=== PATIENT | female | born 1990 | race Caucasian/White ===

== ENCOUNTER → 2016-12-24 | Outpatient (REF) | payer BC, OTHER | LOC: M LAB REF 10:10 | PROVIDERS: ATTEND Physician Assistant | DX: J02.9 Acute pharyngitis, unspecified (principal) ==

== ENCOUNTER → 2017-05-13 | Outpatient (CLI) | payer BC, OTHER ==
--- NOTE | 2017-05-13 21:11 | REP ---
RIGHT FOOT COMPLETE: 05/13/2017: Clinical history: Puncture without foreign body right foot. Stepped on a screw. No prior study. Findings: I do not see a metallic radiopaque foreign body. There is no bone puncture evident. I see no heel spurs. Subtalar joints intact. Talonavicular, calcaneocuboid joints, tarsal articulations. Metatarsals and phalanges as well as the joints were all unremarkable. Impression: 1. Negative right foot series. Signed by Austen Couch MD 05/13/2017 09:35 P
== END ==
LOC: M ADAMS 19:03
PROVIDERS: ATTEND Physician Assistant
DX: S91.331A Puncture wound without foreign body, right foot, initial encounter (principal); X58.XXXA Exposure to other specified factors, initial encounter; Y92.9 Unspecified place or not applicable; Y93.9 Activity, unspecified; Y99.9 Unspecified external cause status

== ENCOUNTER → 2018-01-31 | Outpatient (CLI) | payer OTHER | LOC: M WUC 17:11 | DX: M54.5 Low back pain (principal) | CPT/HCPCS: 72110 ==

== ENCOUNTER 2018-05-22 10:51 | Emergency (ER) | payer OTHER | END 2018-05-22 12:01 | disposition home or self-care (01) | LOC: M ED 10:51 | DX: S63.502A Unspecified sprain of left wrist, initial encounter (principal); W01.0XXA Fall on same level from slipping, tripping and stumbling without subsequent striking against object, initial encounter; Y92.098 Other place in other non-institutional residence as the place of occurrence of the external cause; Z88.2 Allergy status to sulfonamides | CPT/HCPCS: 73110 ==

== ENCOUNTER 2018-08-20 20:51 | Emergency (ER) | payer BC, OTHER ==
[2018-08-20] MEDS: diazePAM 10 MG TAB PO (22:26)
[2018-08-20] MEDS: KETOROLAC 60 MG/2 ML VIAL (J1885) IM (22:27)
[2018-08-20] MEDS: OXYCODONE/APAP 5MG/325MG(BULK FOR ED) 1 TABLET PO (22:55)
== END 2018-08-20 23:03 | disposition home or self-care (01) ==
LOC: M ED 20:51
DX: S39.012A Strain of muscle, fascia and tendon of lower back, initial encounter (principal); X58.XXXA Exposure to other specified factors, initial encounter; Y92.9 Unspecified place or not applicable; Y93.9 Activity, unspecified; Y99.9 Unspecified external cause status; Z79.3 Long term (current) use of hormonal contraceptives; Z88.2 Allergy status to sulfonamides; Z88.8 Allergy status to other drugs, medicaments and biological substances
CPT/HCPCS: J1885

== ENCOUNTER → 2019-01-07 | Outpatient (REF) | payer BC ==
[~2019-01-07] MED LIST: IBUP200T45 PO; NAPR-50 PO; NORCOTAB PO; NUVAMIS2; SOMA350T PO; TRAM50TA2 PO
== END ==
LOC: M LAB REF 17:22
PROVIDERS: ATTEND Advanced Practice Midwife
DX: Z12.4 Encounter for screening for malignant neoplasm of cervix (principal)

== ENCOUNTER → 2020-02-18 | Outpatient (REF) | payer OTHER ==
[~2020-02-18] MED LIST changes: +HYDR-3715 PO; -NAPR-50 PO; +NAPR-837 PO; -NORCOTAB PO
== END ==
LOC: M LAB REF 17:40
PROVIDERS: ATTEND Physician Assistant
DX: N39.0 Urinary tract infection, site not specified (principal)

== ENCOUNTER → 2020-10-04 | Outpatient (REF) | payer OTHER | LOC: M LAB REF 16:55 | PROVIDERS: ATTEND Family Medicine | DX: N39.0 Urinary tract infection, site not specified (principal) ==

== ENCOUNTER 2021-03-15 11:28 | Emergency (ER) | payer OTHER ==
[~2021-03-15] VITALS: Ht 162.6 cm; Wt 75.0 kg
[2021-03-15 12:45] LABS: HEMATOCRIT 40.7 % (36.0-47.0); HEMOGLOBIN 13.3 g/dl (12.0-15.5); MEAN CORPUSCULAR HEMOGLOBIN 30.1 pg (27.0-33.0); MEAN CORPUSCULAR HGB CONC 32.7 g/dl (32.0-36.5); MEAN CORPUSCULAR VOLUME 92.1 fl (80.0-96.0); PLATELET COUNT, AUTOMATED 314 10^3/uL (150-450); RED BLOOD COUNT 4.42 10^6/uL (4.00-5.40)
[2021-03-15 13:19] LABS: HCG, SERUM QUANTITATIVE 4 MIU/ML
[2021-03-15 14:04] LABS: ALT/SGPT 21 U/L (12-78); BILIRUBIN,DIRECT < 0.1 MG/DL (0.0-0.2); BILIRUBIN,TOTAL 0.2 MG/DL (0.2-1.0); BLOOD UREA NITROGEN 11 MG/DL (7-18); CALCIUM LEVEL 8.9 MG/DL (8.5-10.1); CARBON DIOXIDE LEVEL 26 MEQ/L (21-32); CHLORIDE LEVEL 107 MEQ/L (98-107); GLOMERULAR FILTRATION RATE > 60.0 (>60); GLUCOSE, FASTING 87 MG/DL (70-100); SODIUM LEVEL 140 MEQ/L (136-145); TOTAL PROTEIN 7.8 GM/DL (6.4-8.2)
--- NOTE | 2021-03-15 14:09 | REP ---
INDICATION: vaginal bleeding, positive hcg, h/o ectopic COMPARISON: None. TECHNIQUE: Transabdominal and transvaginal 1st trimester obstetrical ultrasound with color Doppler evaluation. FINDINGS: Heterogeneous anteverted uterus measures 7.8 x 3.6 x 3.4 cm. The endometrial complex measures roughly 16 mm. No intrauterine is identified. Bilateral maternal ovaries are normal in appearance and vascularity. Right ovary measures 3.0 x 2.0 x 1.6 cm (RI 0.46). Left ovary measures 2.7 x 2.2 x 1.8 cm (RI 0.42). No pelvic fluid or adnexal mass lesion. IMPRESSION: No intrauterine identified. Differential diagnosis includes early as well as recently missed and less likely ectopic cannot be excluded. Correlation with serial HCG levels and repeat ultrasound as necessary. <Electronically signed by Chava Subramanian > 03/15/21 [id number]
[2021-03-15 15:30] VITALS: BP 146/89
== END 2021-03-15 16:18 | disposition home or self-care (01) ==
LOC: M ED 11:28
DX: O20.0 Threatened abortion (principal); O26.891 Other specified pregnancy related conditions, first trimester; O99.411 Diseases of the circulatory system complicating pregnancy, first trimester; I51.9 Heart disease, unspecified; O99.341 Other mental disorders complicating pregnancy, first trimester; F41.9 Anxiety disorder, unspecified; F33.9 Major depressive disorder, recurrent, unspecified; O09.291 Supervision of pregnancy with other poor reproductive or obstetric history, first trimester; Z79.899 Other long term (current) drug therapy; Z3A.01 Less than 8 weeks gestation of pregnancy; Z88.2 Allergy status to sulfonamides; Z88.1 Allergy status to other antibiotic agents; Z88.8 Allergy status to other drugs, medicaments and biological substances; Z86.69 Personal history of other diseases of the nervous system and sense organs; Z82.49 Family history of ischemic heart disease and other diseases of the circulatory system; Z83.42 Family history of familial hypercholesterolemia

== ENCOUNTER → 2021-06-15 | Outpatient (CLI) | payer BC, OTHER ==
[~2021-06-15] MED LIST changes: +ACET325C5 PO; +AMPH1CAP4; -IBUP200T45 PO; +IBUP200T46 PO; +PRENTAB9 PO; +TRIA55AE2
[2021-06-15 15:40] LABS: HEMATOCRIT 38.3 % (36.0-47.0); HEMOGLOBIN 12.8 g/dl (12.0-15.5); MEAN CORPUSCULAR HEMOGLOBIN 30.5 pg (27.0-33.0); MEAN CORPUSCULAR HGB CONC 33.4 g/dl (32.0-36.5); MEAN CORPUSCULAR VOLUME 91.2 fl (80.0-96.0); PLATELET COUNT, AUTOMATED 252 10^3/uL (150-450); WHITE BLOOD COUNT 8.7 10^3/uL (4.0-10.0)
[2021-06-15 16:57] LABS: GC DNA AMPLIFICATION NEGATIVE (NEGATIVE)
[2021-06-15 16:59] LABS: HEPATITIS C VIRUS ABY INDEX < 0.0 INDEX (<0.8); HIV 1&2 SCREEN CENTAUR NEGATIVE (NEGATIVE)
== END ==
LOC: M PLALAB 12:00
PROVIDERS: ATTEND Advanced Practice Midwife
DX: Z36.89 Encounter for other specified antenatal screening (principal); Z3A.09 9 weeks gestation of pregnancy

== ENCOUNTER → 2021-07-17 | Outpatient (CLI) | payer BC ==
[~2021-07-17] MED LIST changes: -ACET325C5 PO; -AMPH1CAP4; +IBUP200T45 PO; -IBUP200T46 PO; -PRENTAB9 PO; -TRIA55AE2
== END ==
LOC: M PLALAB 07:34
PROVIDERS: ATTEND Obstetrics & Gynecology
DX: Z34.82 Encounter for supervision of other normal pregnancy, second trimester (principal)

== ENCOUNTER → 2021-08-21 | Outpatient (CLI) | payer BC ==
[~2021-08-21] MED LIST changes: -IBUP200T45 PO; +IBUP200T46 PO
--- NOTE | 2021-08-21 14:25 | REP ---
INDICATION: ANATOMY. COMPARISON: 03/15/2021. TECHNIQUE: Real-time sonographic evaluation of the gravid uterus performed. FINDINGS: Estimated gestational age is19 weeks 1 day, EDC 01/14/2022. Today's measurements indicate appropriate growth. Presentation: Cephalic Placenta anterior, grade 0, without evidence of placenta previa. heart rate is recorded at 160 beats per minute. Amniotic fluid is subjectively normal. Closed cervical length is measured at 4.8 cm. Biometry chart: BPD: 43 mm, 19 weeks 0 days, 47th percentile. HC: 165 mm, 19 weeks 1 days, 51st percentile AC: 135 mm, 19 weeks 0 days, 47th percentile Femur length: 30 mm, 19 weeks 1 days, 50th percentile HC to AC ratio: 1.21, normal range 1.06-1.25. Estimated weight: 273g, 42nd percentile. anatomy: Cranium: Grossly normal Lateral Ventricles/Choroid Plexus: Grossly normal Posterior Fossa/Cerebellum: Grossly normal Nose/lips/profile: Grossly normal Four chamber heart: Grossly normal Right ventricular outflow tract: Grossly normal Left ventricular outflow tract: Grossly normal except for echogenic focus in the left ventricle likely related to chordae tendineae. Left-sided stomach: Grossly normal Kidneys: Grossly normal Bladder: Grossly normal Cord Insertion: Grossly normal 3 vessel cord: Grossly normal Spine: Grossly normal IMPRESSION: Viable single intrauterine gestation as above. <Electronically signed by John Roland > 08/21/21 [id number]
== END ==
LOC: M WHC 07:02
PROVIDERS: ATTEND Obstetrics & Gynecology
DX: Z34.82 Encounter for supervision of other normal pregnancy, second trimester (principal); Z3A.19 19 weeks gestation of pregnancy

== ENCOUNTER 2021-09-25 21:13 | Outpatient (CLI) | payer OTHER, BC ==
[~2021-09-25] VITALS: Ht 162.6 cm; Wt 80.4 kg
[2021-09-25 21:45] VITALS: BP 123/73
[2021-09-25] MEDS ORDERED: PRENTAB9 PO (22:38)
[2021-09-25] MEDS ORDERED: ACET325C5 PO (22:38)
[2021-09-26 00:31] LABS: INFLUENZA A AMPLIFICATION NEGATIVE (NEGATIVE)
[2021-09-26 00:32] LABS: INFLUENZA B AMPLIFICATION NEGATIVE (NEGATIVE)
[2021-09-26 00:53] LABS: HEMATOCRIT 34.9 % (36.0-47.0); HEMOGLOBIN 11.9 g/dl (12.0-15.5); MEAN CORPUSCULAR HGB CONC 34.1 g/dl (32.0-36.5); MEAN CORPUSCULAR VOLUME 93.8 fl (80.0-96.0); PLATELET COUNT, AUTOMATED 295 10^3/uL (150-450); RED BLOOD COUNT 3.72 10^6/uL (4.00-5.40)
== END 2021-09-26 01:02 | disposition home or self-care (01) ==
LOC: M LDO 21:13
PROVIDERS: ATTEND Advanced Practice Midwife
DX: O26.892 Other specified pregnancy related conditions, second trimester (principal); R50.9 Fever, unspecified; Z3A.24 24 weeks gestation of pregnancy
CPT/HCPCS: 36415; 59025; 81001; 85027; 87631; U0002

== ENCOUNTER → 2021-10-23 | Outpatient (REF) | payer BC, OTHER ==
[~2021-10-23] MED LIST changes: +ACET325C5 PO; +AMPH1CAP4; +PRENTAB9 PO; +TRIA55AE2
== END ==
LOC: M LAB REF 17:14
PROVIDERS: ATTEND Nurse Practitioner Adult Health
DX: J06.9 Acute upper respiratory infection, unspecified (principal)

== ENCOUNTER 2021-10-24 16:07 | Emergency (ER) | payer BC, OTHER ==
[~2021-10-24] VITALS: Ht 162.6 cm; Wt 98.3 kg
[~2021-10-24 16:07] MED LIST changes: -AMPH1CAP4; -TRIA55AE2
[2021-10-24 16:08] VITALS: BP 141/80
[2021-10-24] MEDS ORDERED: AMPH1CAP4 (16:40)
[2021-10-24] MEDS ORDERED: TRIA55AE2 (16:40)
== END 2021-10-24 18:33 | disposition left against medical advice (07) ==
LOC: M ED 16:07
DX: Z53.21 Procedure and treatment not carried out due to patient leaving prior to being seen by health care provider (principal)

== ENCOUNTER → 2021-10-30 | Outpatient (CLI) | payer BC, OTHER ==
[~2021-10-30] MED LIST changes: +AMPH1CAP4; +TRIA55AE2
[2021-10-30 10:59] LABS: HEMATOCRIT 36.7 % (36.0-47.0); HEMOGLOBIN 12.2 g/dl (12.0-15.5); MEAN CORPUSCULAR HEMOGLOBIN 31.5 pg (27.0-33.0); MEAN CORPUSCULAR HGB CONC 33.2 g/dl (32.0-36.5); MEAN CORPUSCULAR VOLUME 94.8 fl (80.0-96.0); PLATELET COUNT, AUTOMATED 286 10^3/uL (150-450); RED BLOOD COUNT 3.87 10^6/uL (4.00-5.40); WHITE BLOOD COUNT 9.2 10^3/uL (4.0-10.0)
== END ==
LOC: M PLALAB 07:45
PROVIDERS: ATTEND Obstetrics & Gynecology
DX: O26.892 Other specified pregnancy related conditions, second trimester (principal); Z3A.00 Weeks of gestation of pregnancy not specified

== ENCOUNTER → 2021-11-27 | Outpatient (CLI) | payer BC, OTHER | LOC: M LAB 08:06 | PROVIDERS: ATTEND Obstetrics & Gynecology | DX: R73.09 Other abnormal glucose (principal) ==

== ENCOUNTER → 2021-12-20 | Outpatient (REF) | payer BC, OTHER | LOC: M PLALAB 15:27 | PROVIDERS: ATTEND Advanced Practice Midwife | DX: Z34.83 Encounter for supervision of other normal pregnancy, third trimester (principal) ==

== ENCOUNTER → 2022-02-01 | Outpatient (CLI) | payer BC, MEDICAID ==
[~2022-02-01] MED LIST changes: +COLA100C5 PO; +IBUP-1022 PO
== END ==
LOC: M PLAIMG 09:34
PROVIDERS: ATTEND Physician Assistant
DX: M54.6 Pain in thoracic spine (principal)

== ENCOUNTER 2022-02-06 11:36 | Emergency (ER) | payer BC, MEDICAID ==
[~2022-02-06] VITALS: Ht 162.6 cm; Wt 71.8 kg
[2022-02-06] MEDS ORDERED: ONDA4TAB6 (11:55)
[2022-02-06] MEDS ORDERED: TRAM50TA2 (11:55)
[2022-02-06] MEDS ORDERED: PULM90IN (11:55)
[2022-02-06] MEDS ORDERED: TIZA2TA (11:55)
[2022-02-06] MEDS ORDERED: ALBU8.5H (11:55)
[2022-02-06] MEDS ORDERED: BUTACAP78 (11:55)
[2022-02-06] MEDS ORDERED: DULO1CAP5 (11:55)
[2022-02-06] MEDS ORDERED: KETOROLAC 30 MG/ML 1ML VIAL IV ONE (12:45)
[2022-02-06] MEDS ORDERED: NORCO, ANEXSIA 5/325MG TABLET (HYDROcodone/ACETAMINOPHEN) PO ONE (13:05)
[2022-02-06 13:18] LABS: BASO % 0.3 % (0.0-1.0); EOS % 0.5 % (0.0-3.0); HEMATOCRIT 40.6 % (36.0-47.0); HEMOGLOBIN 13.6 g/dl (12.0-15.5); LYMPH # 1.9 10^3/uL (1.5-5.0); LYMPH % 32.8 % (24.0-44.0); MEAN CORPUSCULAR HEMOGLOBIN 30.4 pg (27.0-33.0); MEAN CORPUSCULAR HGB CONC 33.5 g/dl (32.0-36.5); MEAN CORPUSCULAR VOLUME 90.6 fl (80.0-96.0); MONO # 0.3 10^3/uL (0.0-0.8); MONO % 5.7 % (2.0-8.0); NEUTROPHILS # 3.5 10^3/uL (1.5-8.5); NEUTROPHILS % 60.5 % (36.0-66.0); PLATELET COUNT, AUTOMATED 278 10^3/uL (150-450); RED BLOOD COUNT 4.48 10^6/uL (4.00-5.40); WHITE BLOOD COUNT 5.8 10^3/uL (4.0-10.0)
[2022-02-06 13:34] LABS: INR 0.95; PROTHROMBIN TIME 13.1 SECONDS (12.7-14.5)
[2022-02-06 13:35] LABS: PARTIAL THROMBOPLASTIN TIME 26.1 SECONDS (25.9-37.0)
[2022-02-06 13:53] LABS: ALBUMIN 3.5 GM/DL (3.2-5.2); ALT/SGPT 23 U/L (12-78); BILIRUBIN,DIRECT 0.1 MG/DL (0.0-0.2); BILIRUBIN,TOTAL 0.4 MG/DL (0.2-1.0); BLOOD UREA NITROGEN 12 MG/DL (7-18); CALCIUM LEVEL 8.9 MG/DL (8.5-10.1); CARBON DIOXIDE LEVEL 26 MEQ/L (21-32); CHLORIDE LEVEL 109 MEQ/L (98-107); CREATININE FOR GFR 0.63 MG/DL (0.55-1.30); GLOMERULAR FILTRATION RATE > 60.0 (>60); GLUCOSE, FASTING 88 MG/DL (70-100); HCG, SERUM QUANTITATIVE 5 MIU/ML; POTASSIUM SERUM 3.8 MEQ/L (3.5-5.1); SODIUM LEVEL 141 MEQ/L (136-145); TOTAL PROTEIN 7.5 GM/DL (6.4-8.2)
[2022-02-06 14:56] VITALS: BP 143/87
[2022-02-06] MEDS ORDERED: MACR100C43 PO (16:49)
[2022-02-06 19:36] LABS: GC DNA AMPLIFICATION NEGATIVE (NEGATIVE)
== END 2022-02-06 16:58 | disposition home or self-care (01) ==
LOC: M ED 11:36
DX: O90.89 Other complications of the puerperium, not elsewhere classified (principal); A49.8 Other bacterial infections of unspecified site; R10.2 Pelvic and perineal pain; M54.50 Low back pain, unspecified; N93.8 Other specified abnormal uterine and vaginal bleeding; Z88.2 Allergy status to sulfonamides; Z88.5 Allergy status to narcotic agent; Z88.8 Allergy status to other drugs, medicaments and biological substances; Z86.16 Personal history of COVID-19; Z79.2 Long term (current) use of antibiotics

== ENCOUNTER → 2022-07-04 | Outpatient (REF) | payer MEDICAID ==
[~2022-07-04] MED LIST changes: +ALBU8.5H; +BUTACAP78; +DULO1CAP5; +MACR100C43 PO; +ONDA4TAB6; +OXYC1TAB23 PO; +PULM90IN; +TIZA2TA; +TRAM50TA2
== END ==
LOC: M PLALAB 10:07
PROVIDERS: ATTEND Advanced Practice Midwife
DX: Z01.419 Encounter for gynecological examination (general) (routine) without abnormal findings (principal); Z12.4 Encounter for screening for malignant neoplasm of cervix

== ENCOUNTER → 2023-02-22 | Outpatient (REF) | payer MEDICAID ==
[~2023-02-22] MED LIST changes: +ETON1VAG7; -NUVAMIS2
[2023-02-22 16:36] LABS: ALBUMIN 3.4 G/DL (3.2-5.2); ALKALINE PHOSPHATASE 63 U/L (46-116); ALT/SGPT 25 U/L (7.0-40); AST/SGOT 15 U/L (<34); BILIRUBIN,TOTAL 0.6 MG/DL (0.3-1.2); BLOOD UREA NITROGEN 11 MG/DL (9-23); CALCIUM LEVEL 8.3 MG/DL (8.5-10.1); CARBON DIOXIDE LEVEL 26 MMOL/L (20-31); CHLORIDE LEVEL 106 MMOL/L (98-107); CPK CREATINE PHOSPHOKINASE 64 U/L (34-145); CREATININE FOR GFR 0.74 MG/DL (0.55-1.30); GLOMERULAR FILTRATION RATE > 60.0 (>60); GLUCOSE, FASTING 68 MG/DL (60-100); SODIUM LEVEL 140 MMOL/L (136-145); TOTAL PROTEIN 7.1 G/DL (5.7-8.2)
[2023-02-22 16:37] LABS: BASO % 0.5 % (0.0-1.0); EOS # 0.1 10^3/uL (0.0-0.5); EOS % 1.1 % (0.0-3.0); HEMOGLOBIN 12.2 g/dl (12.0-15.5); LYMPH # 1.8 10^3/uL (1.5-5.0); LYMPH % 32.4 % (24.0-44.0); MEAN CORPUSCULAR HEMOGLOBIN 30.2 pg (27.0-33.0); MEAN CORPUSCULAR HGB CONC 32.1 g/dl (32.0-36.5); MEAN CORPUSCULAR VOLUME 94.1 fl (80.0-96.0); MONO # 0.2 10^3/uL (0.0-0.8); MONO % 3.6 % (2.0-8.0); NEUTROPHILS # 3.5 10^3/uL (1.5-8.5); NEUTROPHILS % 62.2 % (36.0-66.0); PLATELET COUNT, AUTOMATED 317 10^3/uL (150-450); RED BLOOD COUNT 4.04 10^6/uL (4.00-5.40); WHITE BLOOD COUNT 5.6 10^3/uL (4.0-10.0)
[2023-02-26 09:15] LABS: HCG, SERUM QUALITATIVE NEGATIVE (NEGATIVE)
== END ==
LOC: M LAB REF 16:19
PROVIDERS: ATTEND Nurse Practitioner Family
DX: R10.31 Right lower quadrant pain (principal)

== ENCOUNTER → 2023-02-28 | Outpatient (CLI) | payer MEDICAID ==
[~2023-02-28] MED LIST changes: +GASTROGRAFIN SOLUTION 30ML As Ordered ONE; +ISOVUE-370 76% 100ML VIAL As Ordered ONE
== END ==
LOC: M RAD 15:55
PROVIDERS: ATTEND Nurse Practitioner Family
DX: R10.31 Right lower quadrant pain (principal)
CPT/HCPCS: 74177; Q9963; Q9967

== ENCOUNTER → 2023-05-09 | Outpatient (REF) | payer MEDICAID ==
[~2023-05-09] MED LIST changes: -GASTROGRAFIN SOLUTION 30ML As Ordered ONE; -ISOVUE-370 76% 100ML VIAL As Ordered ONE
[2023-05-09 12:12] LABS: BASO % 0.7 % (0.0-1.0); EOS # 0.2 10^3/uL (0.0-0.5); EOS % 4.4 % (0.0-3.0); HEMATOCRIT 42.5 % (36.0-47.0); HEMOGLOBIN 13.9 g/dl (12.0-15.5); LYMPH # 2.1 10^3/uL (1.5-5.0); LYMPH % 44.9 % (24.0-44.0); MEAN CORPUSCULAR HEMOGLOBIN 29.8 pg (27.0-33.0); MEAN CORPUSCULAR HGB CONC 32.7 g/dl (32.0-36.5); MONO # 0.3 10^3/uL (0.0-0.8); MONO % 5.7 % (2.0-8.0); NEUTROPHILS % 44.3 % (36.0-66.0); PLATELET COUNT, AUTOMATED 268 10^3/uL (150-450); RED BLOOD COUNT 4.67 10^6/uL (4.00-5.40); WHITE BLOOD COUNT 4.6 10^3/uL (4.0-10.0)
[2023-05-09 12:29] LABS: BLOOD UREA NITROGEN 10 MG/DL (9-23); CALCIUM LEVEL 9.2 MG/DL (8.5-10.1); CARBON DIOXIDE LEVEL 27 MMOL/L (20-31); CHLORIDE LEVEL 104 MMOL/L (98-107); CREATININE FOR GFR 0.73 MG/DL (0.55-1.30); GLOMERULAR FILTRATION RATE > 60.0 (>60); GLUCOSE, FASTING 68 MG/DL (60-100); POTASSIUM SERUM 4.3 MMOL/L (3.5-5.1); SODIUM LEVEL 139 MMOL/L (136-145)
== END ==
LOC: M LAB REF 11:43
PROVIDERS: ATTEND Internal Medicine
DX: Z01.818 Encounter for other preprocedural examination (principal)

== ENCOUNTER 2023-05-28 09:56 | Observation (INO) | payer MEDICAID ==
[~2023-05-28] VITALS: Ht 162.6 cm; Wt 75.4 kg
[~2023-05-28 09:56] MED LIST changes: +ACETAMINOPHEN 1000MG 100ML IV BAG As Ordered ONE; -ALBU8.5H; +ALBU8.5H INH; -DULO1CAP5; +DULO1CAP5 PO; +LACRILUBE (AKWA TEARS) OPHTH OINT 3.5GM As Ordered ONE; +LIDOCAINE 2% 100MG/5ML SDV (FOR ANES.) As Ordered ONE; +MIDAZOLAM INJ 2MG/2ML VIAL As Ordered ONE; -ONDA4TAB6; +ONDA4TAB6 PO; +ONDANSETRON 4MG 2ML VIAL As Ordered ONE; -PULM90IN; +PULM90IN INH; +ROCURONIUM BROMIDE 50MG/5ML VIAL As Ordered ONE; +SUGAMMADEX SODIUM 500 MG/5 ML VIAL (BRIDION) As Ordered ONE; -TRAM50TA2; +ceFAZolin SOD 2 GM in IV 1 EA IV ONE; +fentaNYL 250 MCG/5 ML INJECTION As Ordered ONE; +propofoL 200 MG/20 ML VIAL As Ordered ONE
[2023-05-28] MEDS ORDERED: HEPARIN SOD (PORCINE) 5000UNITS/ML 1ML VIAL/SYRINGE SQ ONE (11:30)
[2023-05-28] MEDS ORDERED: GENTAMICIN SULF 80MG/2ML VIAL As Ordered ONE (12:21)
[2023-05-28] MEDS ORDERED: HYDROmorphone HCL 2MG/ML 1ML VIAL As Ordered ONE (13:33)
[2023-05-28] MEDS ORDERED: ePHEDrine SULFATE 25 MG/5 ML(5MG/ML) SYRINGE As Ordered ONE (13:53)
[2023-05-28] MEDS ORDERED: ROCURONIUM BROMIDE 50MG/5ML VIAL As Ordered ONE (14:07)
[2023-05-28] MEDS ORDERED: dexmedeTOMIDine (4MCG/ML)200MCG/50ML BTL (PRECEDEX) As Ordered ONE (14:17)
[2023-05-28] MEDS ORDERED: LR 1,000 ML IV SCH (16:35)
[2023-05-28] MEDS ORDERED: ONDANSETRON 4MG 2ML VIAL IV PRN ×2 (16:35→16:40)
[2023-05-28] MEDS ORDERED: fentaNYL 100 MCG/2 ML INJECTION IV PRN (16:35)
[2023-05-28] MEDS ORDERED: MEPERIDINE 25 MG/ML 1ML VIAL IV PRN (16:35)
[2023-05-28] MEDS ORDERED: ACETAMINOPHEN TAB 650MG DOSE (2X325MG) PO PRN (16:40)
[2023-05-28] MEDS ORDERED: propofoL 200 MG/20 ML VIAL As Ordered ONE (16:43)
[2023-05-28] MEDS: oxyCODONE 5MG TAB PO PRN ×2 (16:54→17:26)
[2023-05-28 17:45] VITALS: BP 115/73; TEMP 98.8; O2SAT 95
[2023-05-28] MEDS: LR 1,000 ML IV SCH (18:11)
[2023-05-28] MEDS: traMADol 50 MG TAB PO PRN (18:12)
[2023-05-28 18:15] VITALS: BP 111/71; TEMP 98.2; O2SAT 96
[2023-05-28 19:27] VITALS: BP 89/62; TEMP 97; O2SAT 99
[2023-05-28] MEDS: PERCOCET 5MG/325MG TAB PO PRN (19:35)
[2023-05-28 20:22] VITALS: BP 127/73; TEMP 94.6; O2SAT 96
[2023-05-28] MEDS ORDERED: MORPHINE 10 MG/ML 1ML VIAL IM PRN (21:10)
[2023-05-28 21:17] VITALS: BP 127/76; TEMP 97.5; O2SAT 96
[2023-05-28] MEDS: ceFAZolin SOD 1 GM in D5W MINI-BAG PLUS 50 ML IV SCH (21:28)
[2023-05-28 22:21] VITALS: BP 109/61; TEMP 98.1; O2SAT 94
[2023-05-29 02:17] VITALS: BP 110/61; TEMP 97.5; O2SAT 95
[2023-05-29] MEDS: PERCOCET 5MG/325MG TAB PO PRN ×3 (03:00→11:15)
[2023-05-29] MEDS: ceFAZolin SOD 1 GM in D5W MINI-BAG PLUS 50 ML IV SCH (05:23)
[2023-05-29 06:00] VITALS: BP 112/65; TEMP 97.5; O2SAT 95
[2023-05-29] MEDS: LR 1,000 ML IV SCH (06:00)
[2023-05-29] MEDS ORDERED: DULoxetine 30MG CAPSULE (CYMBALTA) PO SCH (09:00)
[2023-05-29] MEDS ORDERED: PERCOCET PO (09:49)
[2023-05-29 10:00] VITALS: BP 112/66; TEMP 98.6; O2SAT 96
[2023-05-29] MEDS: traMADol 50 MG TAB PO PRN (10:03)
[2023-05-30] MEDS ORDERED: TRAM50TA2 PO (14:10)
[2023-06-01] MEDS ORDERED: OXYC1TAB23 PO (11:12)
== END 2023-05-29 11:30 | disposition home or self-care (01) ==
LOC: M SDC 09:56 → M ED INP 09:57 → M MS5PR 17:30
PROVIDERS: ADMIT Plastic Surgery Surgery of the Hand; ATTEND Plastic Surgery Surgery of the Hand
DX: N62 Hypertrophy of breast (principal); M54.6 Pain in thoracic spine; G43.909 Migraine, unspecified, not intractable, without status migrainosus; J45.909 Unspecified asthma, uncomplicated; D64.9 Anemia, unspecified; F41.9 Anxiety disorder, unspecified; Z88.5 Allergy status to narcotic agent; Z88.2 Allergy status to sulfonamides; Z88.8 Allergy status to other drugs, medicaments and biological substances; Z91.018 Allergy to other foods; Z79.899 Other long term (current) drug therapy; Z79.891 Long term (current) use of opiate analgesic
CPT/HCPCS: 19318; 81025; 87635; 88305; 96372; 96374; 96376; C9290; J0131; J0665; J0690; J1100; J1170; J1580; J2250; J2405; J3010

== ENCOUNTER → 2024-02-14 | Outpatient (CLI) | payer OTHER ==
[~2024-02-14] MED LIST changes: -ACETAMINOPHEN 1000MG 100ML IV BAG As Ordered ONE; -LACRILUBE (AKWA TEARS) OPHTH OINT 3.5GM As Ordered ONE; -LIDOCAINE 2% 100MG/5ML SDV (FOR ANES.) As Ordered ONE; -MIDAZOLAM INJ 2MG/2ML VIAL As Ordered ONE; -ONDANSETRON 4MG 2ML VIAL As Ordered ONE; +PERCOCET PO; -ROCURONIUM BROMIDE 50MG/5ML VIAL As Ordered ONE; -SUGAMMADEX SODIUM 500 MG/5 ML VIAL (BRIDION) As Ordered ONE; -ceFAZolin SOD 2 GM in IV 1 EA IV ONE; -fentaNYL 250 MCG/5 ML INJECTION As Ordered ONE; -propofoL 200 MG/20 ML VIAL As Ordered ONE
== END ==
LOC: M WHC 07:05
PROVIDERS: ATTEND Physician Assistant
DX: R10.811 Right upper quadrant abdominal tenderness (principal)

== ENCOUNTER → 2024-11-12 | Outpatient (CLI) | payer OTHER ==
[~2024-11-12] MED LIST changes: +BUDE90AE INH; +ONDA-282 PO; -ONDA4TAB6 PO; -PULM90IN INH
== END ==
LOC: M PLAIMG 06:47
PROVIDERS: ATTEND Physician Assistant
DX: G43.009 Migraine without aura, not intractable, without status migrainosus (principal)

== ENCOUNTER → 2024-11-19 | Outpatient (CLI) | payer OTHER ==
[~2024-11-19] MED LIST changes: +ISOVUE-370 76% 100ML VIAL As Ordered ONE
== END ==
LOC: M RAD 07:06
PROVIDERS: ATTEND Physician Assistant
DX: I65.23 Occlusion and stenosis of bilateral carotid arteries (principal)
CPT/HCPCS: 70496; 70498; Q9967

== ENCOUNTER → 2025-07-08 | Outpatient (REF) | payer OTHER ==
[~2025-07-08] MED LIST changes: -IBUP-1022 PO; +IBUP600T42 PO; -ISOVUE-370 76% 100ML VIAL As Ordered ONE
[2025-07-11 08:57] LABS: HPV APTIMA Not Detected (Not Detected)
== END ==
LOC: M SFHCWAGY 17:47
PROVIDERS: ATTEND Advanced Practice Midwife
DX: Z12.4 Encounter for screening for malignant neoplasm of cervix (principal)